=== PATIENT | female | born 1955 | race Caucasian/White ===

== ENCOUNTER → 2016-08-08 | Outpatient (CLI) | payer SELFPAY ==
--- NOTE | 2016-08-09 09:53 | RAD ---
EXAM DESCRIPTION: Ankle,Left 3 Views CLINICAL HISTORY: 61 years Female, PAIN IMPRESSION: There is extensive soft tissue swelling of the left ankle. Calcaneal spur noted. Charcot joint noted. Ankle mortise and syndesmosis are preserved. These findings are similar in appearance when compared to February 05, 2016. Electronically signed by: Bill Jarrett MD 08/09/2016 9:51 AM CDT
--- NOTE | 2016-08-09 10:05 | RAD ---
EXAM DESCRIPTION: Foot,Left 3 Views CLINICAL HISTORY: 61 years,Female,PAIN COMPARISON: February 05, 2016 FINDINGS: The left foot demonstrates severe degenerative changes in the midfoot and the base of the metatarsals. There is joint space widening especially the second third metatarsal bases. Subchondral sclerosis and cystic changes in all metatarsal mid foot surfaces. There is sclerosis and increasing volume loss of the navicular. And also new changes across the neck of the talus of lucent cystic appearing changes and sclerosis. There is collapse of the midfoot and loss of the arches. And mild to moderate loss of joint space and sclerosis of the calcaneal cuboid joint and superior subluxation of the calcaneus of about 8 mm from the cuboid. This is stable. There is a plantar surface calcaneal spur measuring 6 number. An old fracture to the distal third metatarsal mild apex medial annulation stable. Moderate loss of joint space of the first metatarsophalangeal joint. Soft tissues demonstrates in general swelling especially of the hindfoot. IMPRESSION: Left foot demonstrates a Charcot joint changes which have worsened since prior study including probable necrosis with increasing volume loss of the navicular. [] Electronically signed by: Gonzalo Kraft MD 08/09/2016 10:04 AM CDT
--- NOTE | 2016-08-09 10:06 | RAD ---
EXAM DESCRIPTION: Knee,Left 2 or More Views CLINICAL HISTORY: 61 years,Female,PAIN IN LEFT HIP knee COMPARISON: None FINDINGS: The left knee demonstrates no fractures, dislocations, or other acute bony abnormalities. The joint spaces severe loss of subchondral sclerosis of the lateral compartment mild ossified changes in all three compartments and mild loss in the patellofemoral compartment. The soft tissues are unremarkable. No joint effusion. IMPRESSION: Left knee demonstrates severe lateral compartment arthritic changes and mild in the patellofemoral and medial compartment Electronically signed by: Gonzalo Kraft MD 08/09/2016 10:06 AM CDT
--- NOTE | 2016-08-09 10:10 | RAD ---
EXAM DESCRIPTION: Pelvis CLINICAL HISTORY: 61 years, Female, PAIN COMPARISON: None. FINDINGS: Right total hip arthroplasty appears unremarkable. Pedicle rods and screws L5-S1 with SI joint screws all appear unremarkable. Included remainder of the bony elements of the pelvis appear unremarkable. Limited demonstrates only mild loss of joint space in the axial direction. IMPRESSION: Multiple as rotation in the pelvis which appears unremarkable. And mild left hip arthritic changes Electronically signed by: Gonzalo Kraft MD 08/09/2016 10:08 AM CDT
== END | disposition home or self-care (01) ==
LOC: RAD 09:45
PROVIDERS: ATTEND Orthopaedic Surgery
DX: M25.572 Pain in left ankle and joints of left foot (principal); M79.672 Pain in left foot; M25.562 Pain in left knee; M25.552 Pain in left hip